=== PATIENT | female | born 1945 | race Two or more races ===

== ENCOUNTER 2017-02-22 10:29 | Emergency (ER) | payer MEDICARE, MEDICAID ==
[~2017-02-22] VITALS: Ht 149.9 cm; Wt 46.0 kg
[2017-02-22] MEDS ORDERED: BRIM15DR2 OP (10:38)
[2017-02-22 11:00] VITALS: BP 126/79
== END 2017-02-22 12:50 | disposition home or self-care (01) ==
LOC: ER 11:18
DX: L30.8 Other specified dermatitis (principal); E78.00 Pure hypercholesterolemia, unspecified; I10 Essential (primary) hypertension
CPT/HCPCS: 99282

== ENCOUNTER 2017-06-16 16:38 | Inpatient (IN) | payer MEDICARE, MEDICAID ==
[~2017-06-16] VITALS: Ht 149.9 cm; Wt 45.4 kg
[~2017-06-16 16:38] MED LIST: BRIM15DR2 OP
[2017-06-16 20:40] LABS: BASOPHILS % 0.5 % (0.0-2.0); EOSINOPHILS % 0.1 % (0.0-5.0); HEMATOCRIT. 40.3 % (36.0-48.0); HEMOGLOBIN. 13.7 g/dL (12.0-16.0); LYMPHOCYTES % 20.7 % (20.0-50.0); MEAN CORPUSCULAR HEMOGLOBIN 30.3 pg (28.0-32.0); MEAN CORPUSCULAR VOLUME 89.2 fL (81.0-99.0); MEAN PLATELET VOLUME 7.9 fl (7.4-10.4); MONOCYTES % 11.7 % (2.0-8.0); PLATELET 171 x1000/uL (130-400); RED BLOOD CELL COUNT 4.52 mill/uL (4.2-5.4); RED CELL DISTRIBUTION WIDTH 13.7 % (11.6-14.6)
[2017-06-16 20:52] LABS: CHLORIDE 103 mEq/L (98-107); ETHANOL BLOOD < 10 mg/dL
[2017-06-16 23:15] VITALS: BP 164/69
[2017-06-17] MEDS ORDERED: ONDANSETRON HCL 4MG/2ML INJ IV PRN (00:15)
[2017-06-17] MEDS ORDERED: DIPHENHYDRAMINE 50MG/ML VIAL IV PRN (00:15)
[2017-06-17] MEDS ORDERED: MAGNESIUM/ALUMINUM HYDROXIDE/SIMETHICONE 30ML UDC PO PRN (00:15)
[2017-06-17] MEDS ORDERED: ACETAMINOPHEN 325MG TABLET PO PRN (00:15)
[2017-06-17] MEDS ORDERED: CLONIDINE 0.1MG TABLET PO PRN (00:15)
[2017-06-17 04:00] VITALS: BP_SYST 133; BP_SYST 135; BP_DIAS 73; BP_DIAS 82; BP_DIAS 84
[2017-06-17 04:05] LABS: CLARITY URINE CLEAR (CLEAR); COLOR URINE DARK YELLOW (YELLOW); KETONES URINE 2+ (NEGATIVE); LEUKOCYTE ESTERASE URINE TRACE (NEGATIVE); NITRITE URINE NEGATIVE (NEGATIVE); OCCULT BLOOD URINE NEGATIVE (NEGATIVE); PH URINE 5.5 (4.5-8.0); PROTEIN URINE 1+ (NEGATIVE)
[2017-06-17 04:22] LABS: *AMPHETAMINES SCREEN URINE NEGATIVE (NEGATIVE); *BARBITURATES SCREEN URINE NEGATIVE (NEGATIVE); *BENZODIAZEPINES SCREEN URINE NEGATIVE (NEGATIVE); *COCAINE SCREEN URINE NEGATIVE (NEGATIVE); CANNABINOID URINE SCREEN NEGATIVE (NEGATIVE); METHADONE URINE SCREEN NEGATIVE (NEGATIVE); OPIATES URINE SCREEN NEGATIVE (NEGATIVE); PHENCYCLIDINE URINE SCREEN NEGATIVE (NEGATIVE)
[2017-06-17] MEDS: SODIUM CHLORIDE 0.9% INJ 3ML FLUSH IVF SCH ×3 (05:56→21:05)
[2017-06-17 08:00] VITALS: BP 161/77
[2017-06-17] MEDS ORDERED: NEO/3.5O OP (10:06)
[2017-06-17] MEDS ORDERED: ATOR10TA69 PO (10:06)
[2017-06-17] MEDS ORDERED: METO-385 PO (10:06)
[2017-06-17] MEDS ORDERED: ASPI-1079 PO (10:06)
[2017-06-17 12:00] VITALS: BP 118/72
[2017-06-17] MEDS ORDERED: BRIM5DRO6 OP (12:00)
[2017-06-17] MEDS ORDERED: INFLUENZA VIRUS VACCINE(AFLURIA) 0.5ML SYR IM ONE (12:00)
[2017-06-17] MEDS ORDERED: PNEUMOCOCCAL 23-VAL P-SAC VAC 0.5 ML IM ONE (12:00)
[2017-06-17] MEDS: NEO/POLYMYX B SULF/DEXAMETH OPHTH OINT 3.5GM BOTHEYE SCH ×3 (15:48→21:04)
[2017-06-17 16:00] VITALS: BP 118/71
[2017-06-17 20:00] VITALS: BP_SYST 117; BP_SYST 131; BP_DIAS 77; BP_DIAS 81
[2017-06-17] MEDS ORDERED: ATORVASTATIN CALCIUM 10MG TABLET PO SCH (21:00)
[2017-06-17] MEDS: METOPROLOL TARTRATE 25MG TABLET PO SCH (21:00)
[2017-06-18] VITALS: BP 134/77
[2017-06-18 04:00] VITALS: BP 116/66
[2017-06-18] MEDS: SODIUM CHLORIDE 0.9% INJ 3ML FLUSH IVF SCH (06:07)
[2017-06-18 08:00] VITALS: BP_SYST 105; BP_SYST 118; BP_SYST 124; BP_SYST 130; BP_DIAS 73; BP_DIAS 78; BP_DIAS 79; BP_DIAS 85
[2017-06-18] MEDS: NEO/POLYMYX B SULF/DEXAMETH OPHTH OINT 3.5GM BOTHEYE SCH (08:23)
[2017-06-18] MEDS: METOPROLOL TARTRATE 25MG TABLET PO SCH (08:28)
[2017-06-18] MEDS ORDERED: ASPIRIN 81MG TABLET PO SCH (09:00)
[2017-06-18] MEDS ORDERED: BRIMONIDINE 0.2% OPHTH DROPS 5ML BOTHEYE SCH (09:00)
[2017-06-18] MEDS ORDERED: BRIMONIDINE TARTRATE OP SCH (09:00)
[2017-06-18] MEDS ORDERED: GUAIFENESIN 200MG/10ML SUGAR FREE UDC PO PRN (11:15)
[2017-06-18] MEDS ORDERED: AZITHROMYCIN 500 MG TABLET PO NR (12:00)
[2017-06-18 13:47] VITALS: BP 97/73
== END 2017-06-18 14:20 | disposition home or self-care (01) | DRG 74 ==
LOC: ER 18:42 → 5WST 21:03 → EDBEDREQ 21:03 → EDBEDREQTM 21:03 → ENRESERV 21:34
PROVIDERS: ADMIT Internal Medicine; ATTEND Internal Medicine
DX: G90.8 Other disorders of autonomic nervous system (principal); R00.1 Bradycardia, unspecified; E86.0 Dehydration; J06.9 Acute upper respiratory infection, unspecified; E78.00 Pure hypercholesterolemia, unspecified; I10 Essential (primary) hypertension; E78.5 Hyperlipidemia, unspecified; Z98.49 Cataract extraction status, unspecified eye; Z79.899 Other long term (current) drug therapy
CPT/HCPCS: 36415; 71045; 80305; 81001; 83605; 83880; 84443; 84484; 90686; 90732; 93005; 93970; 97162; 99285; G0482

== ENCOUNTER 2018-01-26 16:16 | Emergency (ER) | payer MEDICARE, MEDICAID ==
[~2018-01-26] VITALS: Ht 154.9 cm; Wt 61.0 kg
[~2018-01-26 16:16] MED LIST changes: +ASPI-1079 PO; +ATOR10TA69 PO; +BRIM5DRO6 OP; +METO-385 PO; +NEO/3.5O OP
[2018-01-26] MEDS ORDERED: TETANUS, DIPHTHERIA, PERTUSSIS VAC/PF 0.5ML (>7YR OLD) IM ONE (19:00)
[2018-01-26 20:53] VITALS: BP 154/87
== END 2018-01-26 20:55 | disposition home or self-care (01) ==
LOC: ER 16:16
DX: S61.451A Open bite of right hand, initial encounter (principal); E78.00 Pure hypercholesterolemia, unspecified; I10 Essential (primary) hypertension; W54.0XXA Bitten by dog, initial encounter; Y93.89 Activity, other specified; Y92.89 Other specified places as the place of occurrence of the external cause
CPT/HCPCS: 12001; 73130; 90471; 90715; 99284

== ENCOUNTER 2018-01-29 08:15 | Emergency (ER) | payer MEDICARE, MEDICAID ==
[~2018-01-29] VITALS: Ht 152.4 cm; Wt 45.0 kg
[2018-01-29 08:20] VITALS: BP 123/73
== END 2018-01-29 09:14 | disposition home or self-care (01) ==
LOC: ER 08:15
DX: S61.411D Laceration without foreign body of right hand, subsequent encounter (principal); I10 Essential (primary) hypertension; Z79.899 Other long term (current) drug therapy; X58.XXXD Exposure to other specified factors, subsequent encounter
CPT/HCPCS: 99282

== ENCOUNTER 2018-01-30 10:43 | Emergency (ER) | payer MEDICARE, MEDICAID ==
[~2018-01-30] VITALS: Ht 157.5 cm; Wt 45.0 kg
[2018-01-30 10:50] VITALS: BP 135/62
[2018-01-30] MEDS ORDERED: BACITRACIN ZINC OINT UDPKT TOP ONE (11:30)
== END 2018-01-30 12:11 | disposition home or self-care (01) ==
LOC: ER 10:43
DX: S61.216D Laceration without foreign body of right little finger without damage to nail, subsequent encounter (principal); I10 Essential (primary) hypertension; H40.9 Unspecified glaucoma; W54.0XXD Bitten by dog, subsequent encounter; Z79.82 Long term (current) use of aspirin
CPT/HCPCS: 99283

== ENCOUNTER 2018-02-07 09:31 | Emergency (ER) | payer MEDICARE, MEDICAID ==
[~2018-02-07] VITALS: Ht 165.1 cm; Wt 45.0 kg
[2018-02-07 09:35] VITALS: BP 95/41
== END 2018-02-07 13:43 | disposition home or self-care (01) ==
LOC: ER 09:31
DX: S61.216D Laceration without foreign body of right little finger without damage to nail, subsequent encounter (principal); I10 Essential (primary) hypertension; H40.9 Unspecified glaucoma; Z79.899 Other long term (current) drug therapy; X58.XXXD Exposure to other specified factors, subsequent encounter
CPT/HCPCS: 99281

== ENCOUNTER 2023-06-30 14:16 | Emergency (ER) | payer MEDICARE, MEDICAID ==
[~2023-06-30] VITALS: Ht 147.3 cm; Wt 45.0 kg
[~2023-06-30 14:16] MED LIST changes: -NEO/3.5O OP; +NEOM3.5O42 OP
[2023-06-30 14:32] VITALS: O2SAT 100
[2023-06-30] MEDS ORDERED: NAPR-1176 MT (15:33)
[2023-06-30 15:54] VITALS: BP 140/76; PULSE 63; RESP 16; TEMP 97.8
== END 2023-06-30 15:55 | disposition home or self-care (01) ==
LOC: ER 14:16
DX: M25.561 Pain in right knee (principal); I10 Essential (primary) hypertension; Z98.890 Other specified postprocedural states
CPT/HCPCS: 73562; 99283